=== PATIENT | male | born 1975 | race Caucasian/White ===

== ENCOUNTER → 2017-01-26 | Outpatient (CLI) | payer OTHER | LOC: CARD 10:07 | PROVIDERS: ATTEND Internal Medicine Cardiovascular Disease | DX: I10 Essential (primary) hypertension (principal); E78.5 Hyperlipidemia, unspecified; E55.9 Vitamin D deficiency, unspecified; Z82.49 Family history of ischemic heart disease and other diseases of the circulatory system | CPT/HCPCS: 93017 ==

== ENCOUNTER → 2017-02-04 | Outpatient (CLI) | payer OTHER ==
--- NOTE | 2017-02-07 00:03 | ECHOCARDIOGRAPHY REPORT ---
PROCEDURE PHYSICIAN: AURORA TSANG DATE OF PROCEDURE: 02/04/2017 TWO DIMENSIONAL ECHOCARDIOGRAM REPORT PRIMARY PHYSICIAN: OTHER PHYSICIAN: REFERRING PHYSICIAN: Dr. Jones ORDERING PHYSICIAN: INDICATION FOR THE PROCEDURE: Hypertension. MEASUREMENTS DERIVED VALUES LV DIAMETER (LAX) NORMALS NORMALS Diastolic 4.1 (3.6-5.2) Eject. Fract. 60% (60%+/-6%) Systolic (2.3-3.9) Diastolic Vol. % Shortening (0.22-0.42) Systolic Vol. Aortic Root IVS THICKNESS Diastolic 1 (0.6-1.1) LVPW THICKNESS Diastolic 1 (0.6-1.1) LA DIAMETER Systolic 3.2 (2.1-3.7) FINDINGS: 1. Technical quality is good. 2. The left ventricle is normal in size with normal contractility. Systolic function appeared to be normal. Estimated ejection fraction 60%. 3. The left atrium is normal in size. No clot or thrombus were seen within the left atrium. 4. The right atrium and right ventricle are normal in size. No clot or thrombus were seen within the right side. 5. Mitral valve is normal in morphology with mild mitral regurgitation noted by color Doppler flow. No mitral valve prolapse. No mitral valve stenosis. 6. Aortic valve is trileaflet with normal opening and closing pattern. No significant aortic stenosis or regurgitation was seen. 7. Tricuspid valve is normal in morphology with mild tricuspid regurgitation noted by color Doppler flow. Doppler across tricuspid valve estimated pulmonary artery pressure of 21+ right atrial pressure. 8. Pulmonic valve is functioning normally. 9. No pericardial effusion was noted. IN CONCLUSION: 1. Normal left ventricular size and systolic function. Estimated ejection fraction 60%. 2. Mild mitral and tricuspid regurgitation. 3. Estimated pulmonary artery pressure of 30 mmHg. Job ID: [id number] Dictated Date: 02/06/2017 10:47:18 Senior Project Manager Date: 02/07/2017 00:00:40 / [email or web address]
== END ==
LOC: CARD 12:53
PROVIDERS: ATTEND Internal Medicine Cardiovascular Disease
DX: I10 Essential (primary) hypertension (principal); E78.5 Hyperlipidemia, unspecified; Z82.49 Family history of ischemic heart disease and other diseases of the circulatory system
CPT/HCPCS: 93306

== ENCOUNTER → 2018-12-15 | Outpatient (CLI) | payer OTHER ==
[~2018-12-15] MED LIST: RECEIVED CONTRAST (Hold Metformin) IV SCH
[2018-12-15] MEDS: IOHEXOL 350 MG/ML 100 ML (OMNIPAQUE 350) VIAL IV ONE (09:13)
[2018-12-15] MEDS: NS 100 ML (IVPB) BAG IV ONE (09:14)
--- NOTE | 2018-12-15 10:01 | Diagnostic Imaging Report ---
PROCEDURE: CT abdomen and pelvis with contrast. TECHNIQUE: Multiple contiguous axial images were obtained through the abdomen and pelvis after administration of intravenous contrast. INDICATION: Elevated liver enzymes. COMPARISON: No prior studies are available for comparison. FINDINGS: The lung bases are clear. The liver contains a tiny low-density in the dome of the right lobe of the liver measuring approximately 5 mm in size. This is too small to accurately characterize but likely represents a small cyst. No other liver mass is seen. Gallbladder is unremarkable. No biliary duct dilatation is seen. The pancreas and spleen are unremarkable. No adrenal mass is identified. The kidneys are unremarkable. The aorta is normal in caliber. The small and large bowel loops are normal caliber. No obstruction is seen. There is no free fluid or fluid collection. The bladder is unremarkable. No abdominal or pelvic lymphadenopathy is seen. IMPRESSION: Unremarkable CT of the abdomen and pelvis. Dictated by: Dictated on workstation # [id number]
== END ==
LOC: RAD 08:53
PROVIDERS: ATTEND Nurse Practitioner Family
DX: K50.90 Crohn's disease, unspecified, without complications (principal); R94.5 Abnormal results of liver function studies
CPT/HCPCS: 74177